=== PATIENT | male | born 1965 | race Caucasian/White ===

== ENCOUNTER 2016-09-17 08:40 | Emergency (ER) | payer SELFPAY ==
--- NOTE | 2016-09-17 09:01 | PHYS DOC ---
Adult General Chief Complaint Chief Complaint: CPR/FULL ARREST HPI HPI Patient is a 51 year old male who presents to the emergency department in cardiac arrest. Patient was brought to the emergency department by [facility] who responded to the home of the patient after being called by family due to patient being unresponsive. Patient was last seen responsive approximate 1 hour prior to the EMS call. On EMS arrival, the patient was found be cyanotic and unresponsive. Patient's initial rhythm was found to be asystole. CPR was started in the field and patient had a Combitube placed for ventilation. An IO was placed in the patient's right lower leg tenderness she ate epinephrine. Patient was given 4 rounds of epinephrine in the field and was continued on CPR for approximately 35 minutes prior to arrival in the emergency department. EMS states that the patient on rhythm checks remained in asystole prior to arrival. Patient's past medical history at time of arrival is unknown. Review of Systems Review of Systems Unable to obtain from patient due to unresponsiveness Family History Family History Unknown Current Medications Current Medications Unknown Allergies Allergies Allergies Coded Allergies Type Severity Reaction Last Updated Verified No Known Drug Allergies 09/17/16 No No known drug allergies Physical Exam Physical Exam Constitutional: Unresponsive, morbidly obese, cyanotic. [] HENT: Normocephalic, atraumatic, bilateral external ears normal, oropharynx moist, no oral exudates, nose normal. [] Eyes: Pupils fixed and dilated. [] Cardiovascular: No audible heart tones [] Lungs & Thorax: No spontaneous respirations, assisted ventilations produce equal breath sounds bilaterally with symmetric chest rise [] Abdomen: Protuberant abdomen, reducible umbilical hernia measuring 4 cm present , absent bowel sounds. [] Skin: Warm, dry, cyanotic. [] Back: No tenderness, no CVA tenderness. [] Extremities: Right anterior tibial IO present, no obvious deformities, no peripheral pulses. [] Neurologic: Unresponsive. [] Current Patient Data Vital Signs No vital signs recorded as patient did not return spontaneous circulation nor ever became responsive Lab Values None performed EKG EKG Initial rhythm strip: Asystole [] Radiology/Procedures Radiology/Procedures Not performed [] Course & Med Decision Making Course & Med Decision Making Pertinent Labs and Imaging studies reviewed. (See chart for details) CPR was continued upon arrival in the emergency department until initial rhythm strip could be obtained. Patient received CPR for a total of 35 minutes prior to arrival in the emergency department with no return of spontaneous circulation at any time. Patient found to be in asystole. The patient's chance of survival is 0% at time that the patient was received. CPR was discontinued and patient was evaluated for spontaneous circulation. The patient was apneic and pulseless on recheck. The patient was pronounced at 0844. Family arrived to the emergency department at 0900. I spoke with the patient's mother who was with the patient and contacted EMS. After speaking with her, she described the timeline to be different from what was reported. She states that she thought the patient was seen responsive at 0700, however she states that she may have gotten her times mixed up. She now believes that the patient was last seen responsive at 0730, though she states that he was diaphoretic and was mumbling to himself at that time. She states that the patient likely had medical problems but never went to a physician and did not take any medications. She knows that the patient had high blood pressure but does not know of any other possible medical diagnoses. She stated that the patient had been complaining of not feeling well off and on over the past week. After discussing with the patient's mother and explaining to her that the patient likely suffered a massive heart attack as a cause for his cardiac arrest, she stated agreement with this. She stated that she did not think an autopsy would be necessary. The patient's mother was consoled during the entire time until her daughter arrived at 0915. A injection molder was also paged and arrived to the emergency department to help the patient's family through their bereavement. I contacted Dr. Claudio and spoke with him at 0923. He agreed to sign the patient' s certificate and did not recommend an autopsy. The patient's body will be transferred to the [facility] [place] pending selection of home arrangements by the family. Critical care time excluding procedures: 30 minutes Dragon Disclaimer Dragon Disclaimer This electronic medical record was generated, in whole or in part, using a voice recognition dictation system. Departure Departure Impression: Primary Impression: Cardiac arrest Disposition: 20 Condition: JOAN WINCHESTER MD Sep 17, 2016 09:01
== END 2016-09-17 11:15 | disposition expired ==
LOC: ER 08:40
DX: I46.9 Cardiac arrest, cause unspecified (principal)
CPT/HCPCS: 92950; 99291-25